=== PATIENT | female | born 1995 | race African-American/Black ===

== ENCOUNTER 2024-07-24 16:16 | Emergency (ER) | payer SELFPAY ==
[~2024-07-24] VITALS: Ht 170.2 cm; Wt 64.0 kg
[2024-07-24 16:39] VITALS: BP 124/90; PULSE 90; RESP 16; TEMP 98.3; O2SAT 100
== END 2024-07-24 16:46 | disposition left against medical advice (07) ==
LOC: ER 16:16
DX: F22 Delusional disorders (principal); Z53.21 Procedure and treatment not carried out due to patient leaving prior to being seen by health care provider

== ENCOUNTER 2024-07-24 18:14 | Emergency (ER) | payer MEDICAID, OTHER ==
[~2024-07-24] VITALS: Ht 167.6 cm; Wt 82.0 kg
[2024-07-24 18:42] VITALS: O2SAT 100
[2024-07-24 22:42] VITALS: TEMP 37.00296
[2024-07-24] MEDS: HALOPERIDOL LACTATE 5MG/ML VIAL IM ONE (22:55)
[2024-07-24] MEDS: LORAZEPAM 2MG/ML INJ IM ONE (22:55)
[2024-07-24] MEDS: DIPHENHYDRAMINE 50MG/ML VIAL IM ONE (22:55)
[2024-07-25 00:07] LABS: BASOPHILS % 0.7 % (0.0-2.0); EOSINOPHILS % 4.9 % (0.0-5.0); HEMATOCRIT. 39.1 % (36.0-48.0); HEMOGLOBIN. 12.8 g/dL (12.0-16.0); LYMPHOCYTES % 22.3 % (20.0-50.0); MEAN CORPUSCULAR HEMOGLOBIN 26.5 pg (28.0-32.0); MEAN CORPUSCULAR HGB CONC 32.8 g/dL (31.0-37.0); MEAN CORPUSCULAR VOLUME 80.9 fL (81.0-99.0); MONOCYTES % 7.7 % (2.0-8.0); NEUTROPHILS % 64.4 % (40.0-76.0); PLATELET 252 x1000/uL (130-400); RED BLOOD CELL COUNT 4.83 mill/uL (4.2-5.4); RED CELL DISTRIBUTION WIDTH 13.4 % (11.6-14.6); WHITE BLOOD COUNT 7.9 x1000/uL (4.5-11.0)
[2024-07-25 00:42] LABS: CHLORIDE 107 mEq/L (98-107); POTASSIUM 3.2 mEq/L (3.5-5.1); SODIUM 142 mEq/L (136-145)
[2024-07-25 00:43] LABS: CALCIUM 9.3 mg/dL (8.7-10.4); CARBON DIOXIDE 26 mEq/L (21-32)
[2024-07-25 00:48] LABS: CREATININE 0.8 mg/dL (0.6-1.0); GLUCOSE 113 mg/dL (70-105); UREA NITROGEN BLOOD 11 mg/dL (9-23)
[2024-07-25 00:49] LABS: ACETAMINOPHEN < 2 ug/mL (10-30)
[2024-07-25 00:50] LABS: ALANINE AMINOTRANSFERASE 12 IU/L (10-49); ALBUMIN 4.4 g/dL (3.2-4.8); ASPARTATE AMINOTRANSFERASE 15 IU/L (<34); BILIRUBIN DIRECT 0.3 mg/dL (<=3.0); BILIRUBIN TOTAL 0.8 mg/dL (0.1-1.0); PROTEIN TOTAL 7.4 g/dL (6.0-8.3)
[2024-07-25 01:02] LABS: ETHANOL BLOOD < 10 mg/dL (<10)
[2024-07-25 01:05] LABS: HCG SCREEN NEGATIVE
[2024-07-25 08:03] VITALS: BP 112/71; PULSE 78; RESP 15; O2SAT 98
[2024-07-25] MEDS: POTASSIUM CHLORIDE 20MEQ/PACKET PO ONE (09:48)
== END 2024-07-25 10:35 | disposition home or self-care (01) ==
LOC: ER 18:14
DX: F20.9 Schizophrenia, unspecified (principal); E87.6 Hypokalemia; F19.10 Other psychoactive substance abuse, uncomplicated; Z59.00 Homelessness unspecified; Z20.822 Contact with and (suspected) exposure to COVID-19
CPT/HCPCS: 80076; 80048; 80307; 80329; 80320; 84703; 85025; 36415; 96372; 99285; 70450; 87426; J1200; J1630; J2060; G0480